=== PATIENT | male | born 1965 | race Hispanic/Latino ===

== ENCOUNTER 2017-09-03 14:12 | Emergency (ER) | payer BC ==
[~2017-09-03] VITALS: Ht 175.3 cm; Wt 97.5 kg
[2017-09-03] MEDS ORDERED: TETRACAINE HCL 0.5% OPTH SOLN 4 ML BTL OP ONE (15:00)
[2017-09-03] MEDS ORDERED: FLUORESCEIN SOD(OPTH) 1 MG STRP OP ONE (15:00)
[2017-09-03 16:19] VITALS: BP 135/72
== END 2017-09-03 16:22 | disposition home or self-care (01) ==
LOC: ER 14:12
DX: S05.02XA Injury of conjunctiva and corneal abrasion without foreign body, left eye, initial encounter (principal); H18.822 Corneal disorder due to contact lens, left eye
CPT/HCPCS: 99283